=== PATIENT | female | born 1985 | race Caucasian/White ===

== ENCOUNTER 2017-05-26 16:58 | Inpatient (IN) | payer OTHER ==
[2017-05-26 17:14] VITALS: BMI 33.9
[2017-05-26] MEDS ORDERED: Sodium Chloride 0.9% 1,000 ML IV ONE (18:37)
[2017-05-26 18:56] LABS: BASO % 0.3 % (0.0-2.0); EOS # 0.2 K/uL (0.0-0.7); EOS % 1.4 % (0.0-4.0); HEMATOCRIT 40.8 % (34.0-47.0); LYMPH # 2.4 K/uL (1.0-4.3); LYMPH % 19.4 % (20.0-40.0); MEAN CORPUSCULAR HEMOGLOBIN 31.1 pg (27.0-31.0); MEAN CORPUSCULAR HGB CONC 33.6 g/dL (33.0-37.0); MEAN PLATELET VOLUME 11.1 fL (7.2-11.7); MONO # 0.6 K/uL (0.0-0.8); MONO % 4.7 % (0.0-10.0); RED CELL DISTRIBUTION WIDTH 14.5 % (11.5-14.5); WHITE BLOOD COUNT 12.3 K/uL (4.8-10.8)
[2017-05-26 18:57] LABS: MEAN CELL VOLUME 92.4 fL (81.0-99.0)
[2017-05-26 19:02] LABS: CHLORIDE 96 mmol/L (98-107); POTASSIUM 3.3 mmol/L (3.6-5.2); SODIUM 137 mmol/L (132-148)
[2017-05-26 19:03] LABS: RBC URINE < 1 /hpf (0-3); URINE BACTERIA OCC (<OCC); URINE BILIRUBIN NEGATIVE (NEGATIVE); URINE BLOOD NEGATIVE (NEGATIVE); URINE COLOR Straw (YELLOW); URINE GLUCOSE (UA) NORMAL (Normal); URINE KETONE NEGATIVE (NEGATIVE); URINE PROTEIN NEGATIVE (NEGATIVE); URINE UROBILINOGEN NORMAL mg/dL (0.2-1.0); WBC URINE 10 /hpf (0-5)
[2017-05-26 19:05] LABS: ALB/GLOB RATIO 1.2 (1.0-2.1); ALKALINE PHOSPHATASE 80 U/L (38-126); ALT/SGPT 34 U/L (9-52); AST/SGOT 26 U/L (14-36); BILIRUBIN,TOTAL 0.6 mg/dL (0.2-1.3); BLOOD UREA NITROGEN 6 mg/dL (7-17); CALCIUM 8.9 mg/dl (8.6-10.4); CARBON DIOXIDE 26 mmol/L (22-30); GFR AFRICAN-AMERICAN > 60; GLUCOSE,RANDOM 97 mg/dL (65-105); TOTAL PROTEIN 7.4 g/dL (6.3-8.3)
[2017-05-26 19:08] LABS: URINE LEUKOCYTE ESTERASE 1+ Leu/uL (Negative)
--- NOTE | 2017-05-26 20:39 | C.PDOC ---
History Of Present Illness 31 year old female presents to the emergency department with complaints of vague right lower quadrant pain beginning today. Patient states during patient sough evaluation for similar symptoms but was not able to be evaluated for appendicitis at that time and is seeking appendicitis evaluation now. She denies any nausea, vomiting, diarrhea, or fever. Time Seen by Provider: 05/26/17 18:10 Chief Complaint (Nursing): Abdominal Pain History Per: Patient History/Exam Limitations: no limitations Onset/Duration Of Symptoms: Hrs Current Symptoms Are (Timing): Still Present Location Of Pain/Discomfort: RLQ Quality Of Discomfort: "Pain" Associated Symptoms: denies: Fever, Chills, Nausea, Vomiting, Diarrhea Recent travel outside of the [place]: No Abnormal Vaginal Bleeding: No Past Medical History Reviewed: Historical Data, Nursing Documentation, Vital Signs Vital Signs: Last Vital Signs Temp 97.9 F 05/26/17 21:59 Pulse 75 05/26/17 21:59 Resp 16 05/26/17 21:59 BP 113/79 05/26/17 21:59 Pulse Ox 100 05/27/17 00:08 Surgical History: - [facility] Procedures DELIVERY OF PRODUCTS OF CONCEPTION, EXTERNAL APPROACH (11/24/16) MONITORING OF POC, CARDIAC RATE, PIPE PROCESSOR APPROACH (11/24/16) REPAIR PERINEUM SKIN, EXTERNAL APPROACH (11/24/16) Family History: States: Unknown Family Hx - Social History Hx Tobacco Use: No Hx Alcohol Use: No Hx Substance Use: No - Immunization History Hx Tetanus Toxoid Vaccination: No Hx Influenza Vaccination: No Hx Pneumococcal Vaccination: No Review Of Systems Constitutional: Negative for: Fever, Chills Cardiovascular: Negative for: Chest Pain Respiratory: Negative for: Shortness of Breath Gastrointestinal: Positive for: Abdominal Pain (vague RLQ pain ). Negative for : Nausea, Vomiting, Diarrhea Physical Exam - Physical Exam Appears: Non-toxic, No Acute Distress, Other (patient is morbidly obese ) Skin: Warm, Dry Head: Atraumatic Oral Mucosa: Moist Neck: Supple Chest: Symmetrical, No Deformity Cardiovascular: Rhythm Regular Respiratory: Normal Breath Sounds, No Rhonchi, No Wheezing Gastrointestinal/Abdominal: Soft, Tenderness (vague right abdominal tenderness ) , No Distention, No Guarding, No Rebound, Other (dull to percussion ) Extremity: Normal ROM, No Tenderness Neurological/Psych: Oriented x3 ED Course And Treatment - Laboratory Results Result Diagrams: 05/26/17 18:44 05/26/17 18:44 Lab Interpretation: Abnormal (ua neg) Urine POC: Negative O2 Sat by Pulse Oximetry: 100 (room air ) - CT Scan/US CT abd/pel Other Rad Studies (CT/US): Read By Radiologist, Radiology Report Reviewed CT/US Interpretation: IMPRESSION: Mild prominence of the appendix, early appendicitis cannot be excluded; gallstones; 4. x 5.3 x 5.4 cm left adnexal; horseshoe kidney with mild right ureterectasis, no renal or ureteral stones Reevaluation Time: 00:03 Reassessment Condition: Improved - Physician Consult Information Outcome Of Conversation: 0000: d/w Dr. Flaherty- Surgeon Senior Quality Manager- ok to adm. d /w [facility] Disposition Doctor Will See Patient In The: Hospital Counseled Patient/Family Regarding: Studies Performed, Diagnosis - Disposition Disposition: HOSPITALIZED Disposition Time: 00:07 Condition: GOOD Forms: [facility] (Kazakh) - Clinical Impression Clinical Impression: Appendicitis - Scribe Statement The provider has reviewed the documentation as recorded by the Scribe Kristine Echeverria All medical record entries made by the Scribe were at my direction and personally dictated by me. I have reviewed the chart and agree that the record accurately reflects my personal performance of the history, physical exam, medical decision making, and the department course for this patient. I have also personally directed, reviewed, and agree with the discharge instructions and disposition.
[2017-05-26] MEDS ORDERED: Iohexol 300 100 ML IJ ONE (21:20)
--- NOTE | 2017-05-26 23:48 | CT ---
EXAM: CT Abdomen and Pelvis With Intravenous Contrast CLINICAL HISTORY: 31 years old, female; Pain; Abdominal pain; Flank; Right lower quadrant (rlq); Additional info: Rlq, + leukocytosis, ? ap TECHNIQUE: Axial computed tomography images of the abdomen and pelvis with intravenous contrast. This CT exam was performed using one or more of the following dose reduction techniques: automated exposure control, adjustment of the mA and/or kV according to patient size, and/or use of iterative reconstruction technique. Coronal and sagittal reformatted images were created and reviewed. CONTRAST: 100 mL of omnipaque 300 administered intravenously. EXAM DATE/TIME: 05/26/2017 8:04 PM COMPARISON: PELVIS/TRANSVAG US 01/12/2016 5:13:51 PM FINDINGS: Lower thorax: Heart size is normal. There is atelectasis at the lung bases ABDOMEN: Liver: There is fatty infiltration of the liver. Gallbladder and bile ducts: Gallbladder is distended. There are partially calcified stones. Pancreas: unremarkable Spleen: unremarkable Adrenals: unremarkable Kidneys and ureters: There is a horseshoe kidney. There is mild right ureterectasis. The ureter is normal in caliber. There is no renal or ureteral stones. Stomach and bowel: Stomach is partially distended. Rotation is normal. Streak limits evaluation of the bowel. There is a small amount of radiopaque material in the distal ileum and cecum. Terminal ileum is unremarkable. There is mild prominence of the appendix. There is minimal wall thickening. Appendiceal margins are somewhat indistinct. Maximal diameter is 7 mm. Streak limits evaluation of the colon.Colon is incompletely distended which limits evaluation. Appendix: See above. PELVIS: Bladder: unremarkable Reproductive: Uterus is unremarkable. There is a 4 x 5.3 x 5.4 cm left adnexal cyst. Right adnexa is unremarkable. ABDOMEN and PELVIS: Intraperitoneal space: There is no significant fluid. There is no free air. Bones/joints: There are no acute osseous abnormalities Soft tissues: There is a small fat containing umbilical hernia. Vasculature: Vascular structures are unremarkable. Lymph nodes: There is no pathologic adenopathy. IMPRESSION: Mild prominence of the appendix, early appendicitis cannot be excluded; gallstones; 4 x 5.3 x 5.4 cm left adnexal; horseshoe kidney with mild right ureterectasis, no renal or ureteral stones Additional findings as described above.
[2017-05-27] MEDS ORDERED: Piperacillin/Tazobact 3.375 gm 100 ML IV STA (00:01)
[2017-05-27] MEDS ORDERED: Morphine 4 MG/ML VIAL IV STA (00:03)
[2017-05-27] MEDS ORDERED: Morphine 4 MG/ML VIAL ONE (00:40)
[2017-05-27] MEDS ORDERED: Piperacillin/Tazobact 3.375 gm 100 ML IVPB ONE (00:54)
[2017-05-27] MEDS: Sodium Chloride 0.9% 1,000 ML IV SCH ×2 (05:26→16:19)
[2017-05-27] MEDS: HYDROmorphone 0.5 mg/0.5 ml ISec IVP PRN ×4 (06:25→18:43)
--- NOTE | 2017-05-27 06:51 | CP.PCM.HP ---
<Sandro Carlos - Last Filed: 05/27/17 06:57> History of Present Illness - History of Present Illness History of Present Illness: Surgery for Dr. Dennis 31 yo female w who recently given 6month ago came with R side abd pain started yesterday. Pain is sudden gradually worsen. Pain is diffuse around R side doesn't radiate to back. Report nausea, vomiting x3, non bilious, non bloody, loss of appetite. No sick contact. Otherwise, denies fever, chills, recent illness, cough, CP, SOB, dyspnea, hematemesis, melena, back pain, dysuria ,hematuria, hematemesis, hematochezia. Pt had similar symptoms during before around the RUQ. Delivery was unremarkable. WBC is 13. CT shows early appendicitis, gallstone and 5cm Ovarian cyst . Pt is going to OR. explained and pt understood. Signed consent. PSH: none PMH: cholelithiasis SS: lives with family . Present on Admission - Present on Admission Any Indicators Present on Admission: No Review of Systems - Review of Systems Review of Systems: See HPI Past Patient History - Infectious Disease Hx of Infectious Diseases: None - Past Medical History & Family History Past Medical History?: No - Past Social History Smoking Status: Never Smoked - MUSCULOSKELETAL/RHEUMATOLOGICAL Hx Falls: No - PSYCHIATRIC Hx Substance Use: No - SURGICAL HISTORY Hx Surgeries: No - ANESTHESIA Hx Anesthesia: No Meds Allergies/Adverse Reactions: Allergies Allergy/AdvReac Type Severity Reaction Status Date / Time No Known Allergies Allergy Verified 04/11/16 16:57 Physical Exam - Constitutional Appears: No Acute Distress - Head Exam Head Exam: ATRAUMATIC, NORMAL INSPECTION, NORMOCEPHALIC - Eye Exam Eye Exam: EOMI, Normal appearance, PERRL Pupil Exam: NORMAL ACCOMODATION, PERRL - ENT Exam ENT Exam: Mucous Membranes Moist, Normal Exam - Respiratory Exam Respiratory Exam: Clear to Auscultation Bilateral, NORMAL BREATHING PATTERN - Cardiovascular Exam Cardiovascular Exam: REGULAR RHYTHM - GI/Abdominal Exam GI & Abdominal Exam: Soft, Tenderness. absent: Distended, Firm, Guarding, Hernia Additional comments: R side TTP. - Exam Exam: NORMAL INSPECTION - Extremities Exam Extremities exam: Positive for: normal inspection - Back Exam Back exam: NORMAL INSPECTION - Neurological Exam Neurological exam: Alert, CN II-XII Intact, Normal Gait, Oriented x3, Reflexes Normal - Psychiatric Exam Psychiatric exam: Normal Affect, Normal Mood - Skin Skin Exam: Dry, Intact, Normal Color, Warm Results - Vital Signs Recent Vital Signs: Last Vital Signs Temp 97.8 F 05/27/17 03:18 Pulse 78 05/27/17 03:18 Resp 20 05/27/17 03:18 BP 117/79 05/27/17 03:18 Pulse Ox 99 05/27/17 03:18 - Labs Result Diagrams: 05/26/17 18:44 05/26/17 18:44 Assessment & Plan - Assessment and Plan (Free Text) Assessment: Early appy, possible biliary colic. -f/u US -OR today -NPO -IVF -ABX -SCD -Nausea/pain control DW Dr. Dennis <Kade Dennis - Last Filed: 05/27/17 22:11> Results - Vital Signs Recent Vital Signs: Last Vital Signs Temp 97.8 F 05/27/17 16:00 Pulse 77 05/27/17 16:00 Resp 18 05/27/17 16:00 BP 146/93 H 05/27/17 16:00 Pulse Ox 96 05/27/17 16:00 - Labs Result Diagrams: 05/27/17 08:27 05/26/17 18:44 Labs: Laboratory Results - last 24 hr 05/27/17 05/27/17 08:27 08:27 WBC 9.1 RBC 4.26 Hgb 13.2 Hct 39.7 MCV 93.2 MCH 31.1 H MCHC 33.3 RDW 14.5 Plt Count 238 MPV 11.4 PT 11.2 INR 1.0 APTT 32 Attending/Attestation - Attestation I have personally seen and examined this patient.: Yes I have fully participated in the care of the patient.: Yes I have reviewed all pertinent clinical information: Yes Notes (Text): 05/27/17 22:09 Pt was seen and examined at bedside on 05/27/17 Agree with above note and assessment Pt with Acute early Appendicitis and Cholelithiasis CT scan of A/P is suggestive of Acute early appendicitis and Cholelithiasis US of Abdomen : suggestive of Acute cholecystitis OR for Lap Appendectomy and Lap Cholecystectomy possible Open Consent NPO, IVF C.w IV antibiotics Plan d.w pt in detail Risk and benefit explained in detail
[2017-05-27 08:33] LABS: HEMATOCRIT 39.7 % (34.0-47.0); MEAN CELL VOLUME 93.2 fL (81.0-99.0); MEAN CORPUSCULAR HEMOGLOBIN 31.1 pg (27.0-31.0); MEAN CORPUSCULAR HGB CONC 33.3 g/dL (33.0-37.0); MEAN PLATELET VOLUME 11.4 fL (7.2-11.7); RED CELL DISTRIBUTION WIDTH 14.5 % (11.5-14.5); WHITE BLOOD COUNT 9.1 K/uL (4.8-10.8)
[2017-05-27] MEDS: Piperacill/Tazo 3.375gm in Dex 3.375 GM/50 ML BAG IVPB SCH ×2 (08:40→16:19)
[2017-05-27] MEDS ORDERED: Lidocaine 1% w Epi 1:100,000 Inj ONE (10:10)
[2017-05-27] MEDS ORDERED: Bupivacaine HCl 0.25% PF (10 ml) Inj ONE (10:10)
--- NOTE | 2017-05-27 10:26 | RAD ---
PROCEDURE: Radiographs of the chest and abdomen (obstructive series) HISTORY: Abdominal pain COMPARISON: No prior. TECHNIQUE: AP radiograph of the chest, with upright and supine radiographs of the abdomen. FINDINGS: CHEST: Lungs: Clear. Cardiovascular: Normal size heart. No pulmonary vascular congestion. Pleura: No pleural fluid. No pneumothorax. Other findings: None. ABDOMEN AND PELVIS: Bowel: There is moderate amount of stool in the ascending colon. No evidence of mechanical obstruction. Free air: None. Bones: Unremarkable. Other findings: None. IMPRESSION: Clear lungs. Constipation. No evidence of mechanical bowel obstruction.
--- NOTE | 2017-05-27 11:25 | US ---
HISTORY: RUQ . r/o chlecystitis COMPARISON: CT abdomen and pelvis performed the same day TECHNIQUE: Grayscale imaging was performed. FINDINGS: LIVER: Measures 17.7 cm in length. There is diffuse increased echogenicity of the liver parenchyma. No mass. No intrahepatic bile duct dilatation. GALLBLADDER: There are multiple gallstones, distention of the gallbladder and mild pericholecystic fluid. There are also stones in the cystic duct. No wall thickening or positive sonographic Meredith's sign. COMMON BILE DUCT: Measures 5.0 mm. No stones. No dilatation. PANCREAS: Unremarkable as visualized. No mass. No ductal dilatation. RIGHT KIDNEY: Measures 10.8 cm in length. The lower pole of the kidney is not well visualized due to horseshoe configuration. Normal echogenicity. No calculus, mass, or hydronephrosis. AORTA: No aneurysmal dilatation. IVC: Unremarkable. OTHER FINDINGS: None . IMPRESSION: Findings may represent acute calculus cholecystitis in the appropriate clinical setting. Mild hepatomegaly and hepatic steatosis. .
[2017-05-27] MEDS ORDERED: Succinylcholine Chloride 20 mg/ml Syr (5 ml) IV ONE (12:43)
[2017-05-27] MEDS ORDERED: Midazolam 2 MG/2 ML VIAL ONE (12:43)
[2017-05-27] MEDS ORDERED: Rocuronium 10 mg/ml (5 ml) ONE ×2 (12:43→13:45)
[2017-05-27] MEDS ORDERED: Propofol 10 mg/ml Inj (20 ML) ONE ×2 (12:43→13:46)
[2017-05-27] MEDS ORDERED: Lactated Ringer's 1,000 ML IV ONE ×2 (12:45→13:55)
[2017-05-27] MEDS ORDERED: ePHEDrine 50 mg/ml Inj ONE (13:42)
[2017-05-27] MEDS ORDERED: Neostigmine Methylsulfate 3mg/3ml Syringe IV ONE (14:17)
--- NOTE | 2017-05-27 14:46 | PCM.SURG1 ---
Surgeon's Initial Post Op Note - Surgeon's Notes Surgeon: Dr. Dennis Freelance Court Stenographer: Dr. Harrison PGY-3, Dr. Carlos PGY-2 Type of Anesthesia: General Endo, Local Anesthesia Administered By: Dr. Whalen Pre-Operative Diagnosis: biliary colic and appendicitis Operative Findings: cholelithiasis Post-Operative Diagnosis: biliary colic and appendicitis Operation Performed: 1) Laparoscopic cholecystectomy 2) laparoscopic cholecystectomy Specimen/Specimens Removed: gallbladder and appendix Estimated Blood Loss: EBL {In ML}: 10 Blood Products Given: N/A Drains Used: No Drains Post-Op Condition: Fair Date of Surgery/Procedure: 05/27/17 Time of Surgery/Procedure: 14:46
[2017-05-27] MEDS ORDERED: HYDROmorphone 0.5 mg/0.5 ml ISec ONE (14:50)
[2017-05-28] MEDS: Sodium Chloride 0.9% 1,000 ML IV SCH ×2 (00:01→05:33)
--- NOTE | 2017-05-28 04:46 | OP ---
PROCEDURE DATE: 05/27/2017 PREOPERATIVE DIAGNOSES: 1. Acute early appendicitis. 2. Cholelithiasis with possible acute cholecystitis. POSTOPERATIVE DIAGNOSES: 1. Acute early appendicitis. 2. Cholelithiasis with possible acute cholecystitis. PROCEDURE: 1. Laparoscopic appendectomy. 2. Laparoscopic cholecystectomy. SURGEON: Kade Dennis MD [facility]: Annabelle Harrison, PGY-3 resident and Sujata PGY-2 resident. ANESTHESIA: General endotracheal tube anesthesia. ESTIMATED BLOOD LOSS: Around 10 mL. DRAINS: None. PATHOLOGY: 1. Appendix was sent to the pathology. 2. Gallbladder with gallstone was sent to the pathology. COMPLICATIONS: None. INTRAOPERATIVE FINDINGS: The patient had changes of acute early appendicitis as well as changes of cholelithiasis and acute cholecystitis. DESCRIPTION OF PROCEDURE: On intraoperative steps, this 31-year-old female who was diagnosed with acute early appendicitis on the CAT scan and patient also had acute cholecystitis on the ultrasound with gallstones and the patient was consented for laparoscopic appendectomy as well as laparoscopic cholecystectomy brought to the OR, placed supine on the operating table. After induction of anesthesia, abdomen was prepped and draped in the usual sterile fashion. Supraumbilical transverse 1.5 cm incision was made. After incising skin and subcutaneous tissue, the fascia was incised in the line of incision and Christophe port was placed, pneumo was created. Another 5 mm port was placed in the suprapubic region and 12 mm port was placed in the midclavicular and another two 5 mm port were placed in upper abdomen. After that grasper and dissector was introduced. The appendix appeared to be very high in the right upper quadrant and mildly distended and first mesoappendix was resected and the base of the appendix resected with SHAMAR, and appendix was taken in the Endo Catch bag, taken out through the umbilical port site, and sent off the table for pathology. Now, the patient was placed in right side head up position and gallbladder was retracted cranially. Calot triangle dissection was done. Cystic duct and cystic artery were identified and clipped at 3 places and cut in between 2 clips near the gallbladder. Gallbladder was dissected free from the gallbladder fossa, taken in the Endo Catch bag, taken out through the umbilical port site and sent off the table for pathology. There was a proper hemostasis in each and every part of the procedure. The suction, irrigation of the gallbladder fossa as well as perihepatic area was done, and after proper hemostasis, all the ports were taken out under vision, pneumo was deflated. The umbilical port site was closed in two layers, the fascia with a 0-Vicryl, skin with a 4-0 Monocryl at all the port site and dry sterile dressing was applied. The patient tolerated the procedure well. Count of the instrument was correct. There was no apparent complication. Kade Dennis MD MTDD
[2017-05-28] MEDS: HYDROmorphone 0.5 mg/0.5 ml ISec IVP PRN ×3 (05:30→15:57)
[2017-05-28 06:54] LABS: HEMATOCRIT 35.4 % (34.0-47.0); MEAN CELL VOLUME 91.9 fL (81.0-99.0); MEAN CORPUSCULAR HEMOGLOBIN 31.1 pg (27.0-31.0); MEAN CORPUSCULAR HGB CONC 33.8 g/dL (33.0-37.0); MEAN PLATELET VOLUME 10.7 fL (7.2-11.7); RED CELL DISTRIBUTION WIDTH 14.7 % (11.5-14.5); WHITE BLOOD COUNT 12.2 K/uL (4.8-10.8)
[2017-05-28 07:19] LABS: CHLORIDE 101 mmol/L (98-107); POTASSIUM 3.1 mmol/L (3.6-5.2); SODIUM 136 mmol/L (132-148)
[2017-05-28 07:21] LABS: GFR AFRICAN-AMERICAN > 60
[2017-05-28 07:22] LABS: ALKALINE PHOSPHATASE 67 U/L (38-126); ALT/SGPT 33 U/L (9-52); AST/SGOT 33 U/L (14-36); BLOOD UREA NITROGEN 5 mg/dL (7-17); CARBON DIOXIDE 24 mmol/L (22-30); GLUCOSE,RANDOM 102 mg/dL (65-105)
[2017-05-28 07:23] LABS: CALCIUM 7.7 mg/dl (8.6-10.4)
[2017-05-28] MEDS: Piperacill/Tazo 3.375gm in Dex 3.375 GM/50 ML BAG IVPB SCH ×3 (08:07→16:01)
[2017-05-28] MEDS ORDERED: Potassium Chloride 20 mEq ER Tab PO STA (09:36)
[2017-05-28 16:11] VITALS: BP 127/80; PULSE 101; RESP 20; TEMP 97.9; O2SAT 98
== END 2017-05-28 18:50 | disposition home or self-care (01) | DRG 883 ==
LOC: C.ER 16:58 → C.9E 05-27 00:02 → C.5T 05-27 02:40
PROVIDERS: ADMIT Surgery Surgical Critical Care; ATTEND Surgery Surgical Critical Care
PROC: 0DTJ4ZZ Resection of Appendix, Percutaneous Endoscopic Approach (ICD-10-PCS; principal; 2017-05-27 12:30)
PROC: 0FT44ZZ Resection of Gallbladder, Percutaneous Endoscopic Approach (ICD-10-PCS; 2017-05-27 12:30)
DX: K35.89 Other acute appendicitis (principal); K80.00 Calculus of gallbladder with acute cholecystitis without obstruction